=== PATIENT | male | born 1985 | race African-American/Black ===

== ENCOUNTER 2019-10-05 13:14 | Emergency (ER) | payer MEDICAID ==
[~2019-10-05] VITALS: Ht 175.3 cm; Wt 80.0 kg
[2019-10-05] MEDS ORDERED: KETOROLAC 30MG/ML VIAL IV STA (13:32)
[2019-10-05] MEDS ORDERED: MORPHINE SULFATE 4 MG/ML CPJ (NOT FOR IM USE) IV ONE (14:00)
[2019-10-05 14:01] LABS: BASOPHILS % 0.3 % (0.0-2.0); HEMATOCRIT. 51.2 % (42.0-52.0); HEMOGLOBIN. 17.1 g/dL (14.0-18.0); LYMPHOCYTES % 41.4 % (20.0-50.0); MEAN CORPUSCULAR HEMOGLOBIN 29.3 pg (28.0-32.0); MEAN CORPUSCULAR VOLUME 87.8 fL (80.0-94.0); MEAN PLATELET VOLUME 9.7 fl (7.4-10.4); MONOCYTES % 11.9 % (2.0-8.0); NEUTROPHILS % 42.4 % (40.0-76.0); PLATELET 158 x1000/uL (130-400); RED BLOOD CELL COUNT 5.83 mill/uL (4.7-6.1); RED CELL DISTRIBUTION WIDTH 14.1 % (11.6-14.6)
[2019-10-05 14:08] LABS: CHLORIDE 104 mEq/L (98-107)
[2019-10-05 14:09] LABS: PROTHROMBIN TIME 11.3 sec (9.6-11.0)
[2019-10-05] MEDS ORDERED: SODIUM CHLORIDE 0.9% 1,000 ML IV ONE (14:45)
[2019-10-05] MEDS ORDERED: GADOBENATE DIMEGLUMINE 529 MG/ML 10ML IV ONE (15:16)
[2019-10-05 15:27] LABS: CLARITY URINE CLEAR (CLEAR); COLOR URINE YELLOW (YELLOW); KETONES URINE NEGATIVE (NEGATIVE); LEUKOCYTE ESTERASE URINE NEGATIVE (NEGATIVE); NITRITE URINE NEGATIVE (NEGATIVE); OCCULT BLOOD URINE NEGATIVE (NEGATIVE); PH URINE 6.5 (4.5-8.0); PROTEIN URINE NEGATIVE (NEGATIVE); SPECIFIC GRAVITY URINE 1.026 (1.005-1.030)
[2019-10-05] MEDS ORDERED: OXYCODONE HCL/ACETAMINOPHEN 5/325MG TABLET PO ONE (18:15)
[2019-10-05 18:40] VITALS: BP 122/80
== END 2019-10-05 18:45 | disposition home or self-care (01) ==
LOC: ER 13:14
DX: M54.10 Radiculopathy, site unspecified (principal); I10 Essential (primary) hypertension
CPT/HCPCS: 36415; 72158; 80053; 81003; 83690; 85025; 85610; 96374; 96375; 99285; A9577; J1885; J2270

== ENCOUNTER 2020-11-30 09:54 | Emergency (ER) | payer MEDICAID, OTHER ==
[~2020-11-30] VITALS: Ht 180.3 cm; Wt 72.0 kg
[2020-11-30] MEDS ORDERED: CYCLOBENZAPRINE 10MG TABLET PO ONE (10:15)
[2020-11-30] MEDS ORDERED: KETOROLAC 30MG/ML VIAL IM ONE (10:15)
[2020-11-30 10:58] VITALS: BP 138/77
[2020-11-30] MEDS ORDERED: CYCL10TA7 MT (11:46)
[2020-11-30] MEDS ORDERED: NAPR-1176 MT (11:46)
== END 2020-11-30 12:06 | disposition home or self-care (01) ==
LOC: ER 09:54
DX: M54.5 Low back pain (principal); I10 Essential (primary) hypertension; Z98.890 Other specified postprocedural states
CPT/HCPCS: 72100; 96372; 99283; J1885

== ENCOUNTER 2021-07-17 20:25 | Emergency (ER) | payer OTHER ==
[~2021-07-17] VITALS: Ht 180.3 cm; Wt 83.0 kg
[~2021-07-17 20:25] MED LIST: CYCL10TA7 MT; NAPR-1176 MT
[2021-07-17] MEDS ORDERED: DEXAMETHASONE 4MG TABLET PO ONE (21:45)
[2021-07-17] MEDS ORDERED: DIPHENHYDRAMINE 50MG CAPSULE PO ONE (21:45)
[2021-07-17] MEDS ORDERED: KETOROLAC 60MG/2ML VIAL IM ONE (21:45)
[2021-07-17] MEDS ORDERED: PROCHLORPERAZINE MALEATE 10MG TABLET PO ONE (21:45)
[2021-07-18 00:18] VITALS: BP 127/65
== END 2021-07-18 00:28 | disposition home or self-care (01) ==
LOC: ER 20:25
DX: G43.909 Migraine, unspecified, not intractable, without status migrainosus (principal)
CPT/HCPCS: 96372; 99284; J1885; J8540; Q0163; Q0164